=== PATIENT | female | born 1955 | race Caucasian/White ===

== ENCOUNTER 2019-06-03 21:54 | Emergency (ER) | payer OTHER ==
[~2019-06-03] VITALS: Ht 167.6 cm; Wt 83.6 kg
[~2019-06-03 21:54] MED LIST: ESTRACE CREAM; ESTROGEN CREAM; LEVO112C2 PO; LEVO112T7 PO; TEST60CR TD; TESTOSTERONE CREAM
[2019-06-03] MEDS ORDERED: LEVO125 PO (22:07)
[2019-06-03 22:15] VITALS: BP 144/77
== END 2019-06-03 23:02 | disposition home or self-care (01) ==
LOC: EMS 21:55
DX: S90.122A Contusion of left lesser toe(s) without damage to nail, initial encounter (principal); E03.9 Hypothyroidism, unspecified; Z91.018 Allergy to other foods; W18.30XA Fall on same level, unspecified, initial encounter; Y93.89 Activity, other specified; Y92.89 Other specified places as the place of occurrence of the external cause; Y99.8 Other external cause status

== ENCOUNTER → 2021-05-19 | Outpatient (CLI) | payer OTHER ==
[~2021-05-19] MED LIST changes: -ESTRACE CREAM; -ESTROGEN CREAM; -LEVO112C2 PO; -LEVO112T7 PO; +LEVO125 PO; -TEST60CR TD; -TESTOSTERONE CREAM
== END | disposition home or self-care (01) ==
LOC: RADMN 12:14
PROVIDERS: ATTEND Legal Medicine
DX: M19.072 Primary osteoarthritis, left ankle and foot (principal); M77.32 Calcaneal spur, left foot; M25.775 Osteophyte, left foot; R60.0 Localized edema; M25.872 Other specified joint disorders, left ankle and foot
CPT/HCPCS: 73620-TC

== ENCOUNTER → 2021-08-17 | Outpatient (CLI) | payer OTHER ==
[2021-08-17 12:25] LABS: BASOPHILS % (AUTO) 0.9 % (0.0-2.0); EOSINOPHILS % (AUTO) 8.7 % (1.0-6.0); HEMATOCRIT 41.2 % (36-46); HEMOGLOBIN 13.4 g/dL (12.0-16.0); LYMPHOCYTES # (AUTO) 0.9 K/uL (1.0-4.8); LYMPHOCYTES % (AUTO) 21.5 % (22.0-44.0); MEAN CORPUSCULAR HEMOGLOBIN 30.4 pg (26.0-34.0); MEAN CORPUSCULAR HGB CONC 32.5 G/dL (31.0-37.0); MEAN CORPUSCULAR VOLUME 94 fL (80-100); MONOCYTES # (AUTO) 0.4 K/uL (0.1-1.0); MONOCYTES % (AUTO) 9.6 % (2.0-9.0); NEUTROPHILS # (AUTO) 2.5 K/uL (1.8-7.7); NEUTROPHILS % (AUTO) 59.3 % (40.0-70.0); PLATELET COUNT (AUTO) 174 K/uL (150-450); RED CELL DISTRIBUTION WIDTH 14.8 % (11.5-14.5)
[2021-08-17 12:42] LABS: ALANINE AMINOTRANSFERASE 29 U/L (12-78); ALBUMIN 3.7 g/dL (3.4-5.0); ALKALINE PHOSPHATASE 93 U/L (46-116); ANION GAP 6 mmol/L (8-16); ASPARTATE AMINOTRANSFERASE 30 U/L (15-37); BILIRUBIN,TOTAL 0.2 mg/dL (0.1-1.0); CALCIUM, TOTAL 9.1 mg/dL (8.8-10.5); CARBON DIOXIDE 25 mmol/L (22-29); CHLORIDE 106 mmol/L (98-107); CHOLESTEROL 242 mg/dL (131-200); CREATININE 0.78 mg/dL (0.60-1.30); GLOMERULAR FILTR. RATE CALC > 60 mL/min (>60); GLUCOSE,RANDOM 90 mg/dL (70-110); HDL CHOLESTEROL 121 mg/dL (40-60); LDL CHOL (CALC.) 114 mg/dL (0-130); SODIUM SERUM 137 mmol/L (136-145); THYROID STIMULATING HORMONE 0.14 uIU/mL (0.36-3.74); TOTAL PROTEIN, SERUM 7.7 g/dL (6.4-8.2); TRIGLYCERIDES 33 mg/dL (15-150); UREA NITROGEN, BLOOD 23 mg/dL (7-18)
[2021-08-17 13:34] LABS: VITAMIN B12 LEVEL 866 pg/mL (211-911); VITAMIN D,TOTAL (25-0H) 102 ng/mL (30-100)
[2021-08-17 13:39] LABS: FOLATE SERUM > 24.0 ng/mL (5.4-)
== END | disposition home or self-care (01) ==
LOC: LABPV 09:03
PROVIDERS: ATTEND Legal Medicine
DX: C18.9 Malignant neoplasm of colon, unspecified (principal); C44.90 Unspecified malignant neoplasm of skin, unspecified; E03.9 Hypothyroidism, unspecified; E78.5 Hyperlipidemia, unspecified; M54.5 Low back pain
CPT/HCPCS: 80053; 80061; 82306; 82607; 82746; 84443; 85025; 36415-L1; 36415-TC